=== PATIENT | female | born 1940 | race Caucasian/White ===

== ENCOUNTER 2019-03-05 19:18 | Inpatient (IN) | payer MEDICARE, BC ==
[~2019-03-05] VITALS: Ht 160 cm; Wt 73.9 kg
--- NOTE | 2019-03-05 21:41 | NUR ---
NEW ADMIT TO DOCTOR VASQUEZ FROM [facility] FOR ALTERED MENTAL STATUS AND AGGRESSION. RECIEVED VIA EMS. PATIENT VERY COMBATIVE UPON ADMIT. REFUSED ADMIT VITALS AND ADMIT ASSESSMENT AND HISTORY. ATTEMPTS TO HIT STAFF DURING ANY INTERVENTIONS. POESY ALARM IN PLACE. ATTEMPTED TO CONTACT SON 'MARICEL" FOR ADMIT CONSENT BUT DID NOT ANSWER. LEFT MESSAGE FOR HIM TO CONTACT CORRECTION.
[2019-03-05] MEDS ORDERED: TYLENOL650 MG RC (23:00)
[2019-03-05] MEDS ORDERED: HYDROCODON-ACE1 EAC7 PO (23:03)
[2019-03-05] MEDS ORDERED: CLEOCIN HCL300 MG PO (23:06)
[2019-03-05] MEDS ORDERED: FLORASTOR250 MG PO (23:07)
[2019-03-05] MEDS ORDERED: VITAMIN B-12500 MCG PO (23:09)
[2019-03-05] MEDS ORDERED: LOW DOSE ASPIRI81 M1 PO (23:09)
[2019-03-05] MEDS ORDERED: MAG-OXIDE400 MG PO (23:10)
[2019-03-05] MEDS ORDERED: LIPITOR80 MG PO (23:10)
[2019-03-05] MEDS ORDERED: FLUTICASONE PRO16 GM NASAL (23:11)
[2019-03-05] MEDS ORDERED: LANTUS SOL100 UNIT/1 SQ (23:12)
[2019-03-05] MEDS ORDERED: COREG25 MG PO (23:14)
[2019-03-05] MEDS ORDERED: PLAVIX75 MG PO (23:14)
[2019-03-05] MEDS ORDERED: LOPID600 MG PO (23:15)
[2019-03-05] MEDS ORDERED: LANOXIN125 MCG PO (23:15)
[2019-03-05] MEDS ORDERED: NOVOLOG100 UNIT/1 SC (23:16)
[2019-03-05] MEDS ORDERED: IMODIUM2 MG PO (23:17)
[2019-03-05] MEDS ORDERED: MYLANTA / MAALO30 ML PO (23:19)
[2019-03-05] MEDS ORDERED: MILK OF MAGNESI30 ML PO (23:20)
[2019-03-05] MEDS ORDERED: NITROSTAT0.3 MG SL (23:24)
[2019-03-05] MEDS ORDERED: SENNA S TABLET1 TAB PO (23:25)
[2019-03-06 07:19] LABS: BASOPHILS 0.1 % (0-2); EOSINOPHILS 0.6 % (0-7); HEMOGLOBIN 9.3 g/dL (12-16); IMMATURE GRANULOCYTES 0.3 % (0-5); LYMPHOCYTES 12.9 % (15-50); MCV 87.2 fL (80.0-100.0); MEAN PLATELET VOLUME 9.3 fL (7.4-10.4); NEUTROPHILS 79.1 % (40-80); PLATELET COUNT 445 10x3/uL (130-400); RBC 3.44 10x6/uL (4.00-5.40); RDW 15.9 % (11.5-14.5); WBC 11.9 10x3/uL (4.8-10.8)
[2019-03-06 07:54] LABS: ALKALINE PHOSPHATASE 97 U/L (46-116); ALT (SGPT) 7 U/L (10-68); BILIRUBIN - TOTAL 0.46 mg/dL (0.2-1.3); CALC OSMOLALITY 276 mosm/kg (275-300); CALCIUM 9.1 mg/dL (8.5-10.1); CARBON DIOXIDE 25.6 mmol/L (21.0-32.0); CHLORIDE - SERUM 101 mmol/L (98-107); CREATININE - SERUM 0.7 mg/dL (0.6-1.3); GLUCOSE 213 mg/dL (74-106); HDL CHOLESTEROL 30 mg/dL (32-96); PROTEIN - SERUM 8.2 g/dL (6.4-8.2); SODIUM 136 mmol/L (136-145); TRIGLYCERIDE 150 mg/dL (30-200); UREA NITROGEN 9 mg/dL (7-18); eGFR NON AFRICAN AMERICAN 86 mL/min (90-120)
[2019-03-06 08:11] LABS: LDL CHOLESTEROL 29 mg/dL (0-100)
[2019-03-06 08:28] LABS: ALBUMIN 2.6 g/dL (3.4-5.0); CHOLESTEROL, TOTAL 89 mg/dL (0-200)
[2019-03-06 08:50] VITALS: BP 103/38
[2019-03-06 10:04] VITALS: Ht 160 cm; Wt 73.9 kg
--- NOTE | 2019-03-06 12:38 | NUR ---
The patient c/o pain in her left foot. Provided [place] 5/325 PO.
--- NOTE | 2019-03-06 12:58 | NUR ---
B) The patient is awake and alert. She does have a wound consult ordered. She is pleasant. Spoke to her son this am and received her code word and that she is a DNR. Her code word is [place]. She has not been aggressive with staff today. I) Provide prescribed meds. R) The patient is compliant with meds and unit milieu. P) Continue POC.
--- NOTE | 2019-03-06 14:37 | NUR ---
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 THE INCISION IS INTACT WITH ABBI AND A DRAIN ON LATERAL ASPECT. SMALL AMOUNT OF BLOODY DRAINAGE NOTED. NO ODOR. NO REDNESS OR EDEMA NOTED. PT STATES IT IS TENDER TO THE TOUCH. WOUND WAS CLEANSED WITH SALINE AND PATTED DRY. IT WAS COVERED WITH DRY 4X4S AND WRAPPED WITH KERLIX. PT TOLERATED WELL. RECOMMEND DAILY DRESSING CHANGES ALONG WITH PRN IF SATURATED OR DISLODGED. WOUND CARE WILL CONTINUE MONITORING.
[2019-03-06 20:20] VITALS: BP 79/34
--- NOTE | 2019-03-06 21:47 | NUR ---
REC'D SITTING IN A WHEELCHAIR IN THE DAYROOM WITH EYES CLOSED. INITIALLY WAS TALKING TO NURSE WITH EYES CLOSED BUT FINALLY OPENED HER EYES. ORIENTED TO SELF ONLY. NO INSIGHT INTO REASON FOR ADMISSION. DRESSING CDI TO RIGHT FOOT. COOPERATIVE WITH STAFF INSTRUCTIONS. ADMINISTER MEDS AND MONITOR COMPLIANCE. REORIENT NEEDED. MED COMPLIANT. POOR REORIENTATION DUE TO IMPAIRED ABILITY TO RETAIN INFORMATION. CONTINUE POC AND PROVIDE SAFE ENVIRONMENT.
[2019-03-07 07:15] LABS: RAPID PLASMA REAGIN Non Reactive (Non Reactive)
--- NOTE | 2019-03-07 07:30 | NUR ---
B) The patient is calm this am she has not shown any aggression. She self propels in her w/c and she continues to have a dressing to the right foot regarding amputation of her five digits x 2 weeks ago. She has poor insight into her situation. I) Provide prescribed meds. R) The patient is compliant with meds. P) Continue POC.
[2019-03-07 09:39] VITALS: BP 104/35
--- NOTE | 2019-03-07 10:49 | NUR ---
Dressing changed. Sutures and drain intact, healing well. Clean dry dressing applied.
--- NOTE | 2019-03-07 14:51 | PSY ---
PATIENT NAME:CATHIE YOUNG MEDICAL RECORD: [id number] : 40 LOCATION:DEEPALI Lopez ADMISSION DATE: 03/05/19 ACCOUNT: [id number] PSYCHIATRIC EVALUATION DATE OF EVALUATION: 03/06/19 IDENTIFYING DATA: The patient is 78 years old and she is admitted to the hospital secondary to aggressive behavior. HISTORY OF PRESENT ILLNESS: The patient has a history of multiple medical problems. She was admitted to the hospital for an amputation of her right foot. Apparently, it was ischemic. She was confused and combative with the nursing staff and she was subsequently transferred to the behavioral unit. She apparently has been living in a fci with her , but she is an extremely poor historian and provides virtually no useful information to me. She is talkative, but when answering questions, it is completely unrelated to what I have asked her. It is clear she is very disorganized. PAST MEDICAL HISTORY: Significant for stroke, diabetes, hypertension, recent amputation. PAST PSYCHIATRIC HISTORY: Significant for dementia with an associated behavior problem. ALLERGIES: SULFA. CURRENT MEDICATIONS: Hydrocodone, aspirin, vitamin B12, Lipitor, Coreg, Plavix, Lanoxin, Lopid, NovoLog, Mylanta, Nitrostat, and docusate sodium. SOCIAL HISTORY: The patient is . Her has Alzheimer's as well. She has 2 children and she is currently a resident of a local fci. MENTAL STATUS EXAMINATION: The patient is awake, alert and oriented to person and place, but not to time or situation. Her mood is flat. Her affect is constricted. Thought processes are circumstantial. Memory, concentration, and abstraction abilities are severely impaired and she denies that she would seek to harm herself or others as well as psychotic symptoms. ASSETS: Supportive family members. LIABILITIES: Limited insight. DIAGNOSTIC IMPRESSION: AXIS I: Vascular dementia. AXIS II: None. AXIS III: Diabetes, hypertension, and hyperlipidemia. PLAN: At this time, the patient is admitted to the hospital for a comprehensive, medical, psychological, and social evaluation. She will be treated with both mood stabilizing and memory enhancing medications. Her long-term prognosis is guarded. TRANSINT:[id number] Voice Confirmation ID: [id number] DOCUMENT ID: [id number] ROMANA VASQUEZ MD at 0184 CC: [id number] DICTATION DATE: 03/06/19 1536 PIPING MANAGER: 03/06/19 1549 ADM IN [facility] [address] [id number]
[2019-03-07 20:00] VITALS: BP 125/43
--- NOTE | 2019-03-07 22:19 | NUR ---
B.) PT IS ALERT AND ORIENTED TO SELF, PLACE AND SITUATION. SHE IS PLEASANT WITH STAFF. SHE USES A WHEELCHAIR TO ASSIST WITH AMBULATION. I.) PROVIDED PM MEDICATIONS. R.) COMPLIANT WITH ALL MEDICATIONS. P.) CONTINUE PLAN OF CARE
--- NOTE | 2019-03-08 08:02 | PN ---
PATIENT:CATHIE YOUNG MEDICAL RECORD: [id number] LOCATION:[facility]EPALI Crump ADMISSION DATE: 03/05/19 PROGRESS NOTE DATE OF SERVICE: 03/07/2019 SUBJECTIVE: The patient's case was discussed with staff. She has no new complaint. OBJECTIVE: The patient is in good behavioral control. She has limited insight about her condition. She is easily agitated and clearly is severely impaired cognitively. ASSESSMENT: Vascular dementia. PLAN: The patient will be maintained on current medications. I am, however, going to start her on Aricept for its memory enhancing properties. TRANSINT:[id number] Voice Confirmation ID: [id number] DOCUMENT ID: [id number] ROMANA VASQUEZ MD at 0802 CC: [id number] DICTATION DATE: 03/07/19 1510 DIGITAL SERVICE ENGINEER: 03/07/19 2101 ADM IN [facility] [address] [id number]
[2019-03-08 09:16] VITALS: BP 125/59
--- NOTE | 2019-03-08 12:03 | NUR ---
B) The patient is awake. She is pleasant and she is cooperative. She is interacting with staff and peers. She is assisting with transfers. She has not shown any aggression today. I) Provide prescribed meds. R) The patient is compliant with meds. P) Continue POC.
--- NOTE | 2019-03-08 16:37 | NUR ---
New dressing applied to her right foot, sutures inatact with a small drain.
--- NOTE | 2019-03-08 19:47 | NUR ---
RECEIVED IN DAYROOM. SITTING QUIETLY IN RECLINER WITH PEERS BY HER SIDE. CALM AND COOPERATIVE WITH CARE AND ASSESSMENT. NO AGGRESSIVE BEHAVIORS. REDIRECT AND REORIENT NEEDED. CONTINUES TO SIT WITH PEERS WHILE WAITING ON PM MEDICATIONS. CONTINUE PLAN OF CARE.
[2019-03-08 20:00] VITALS: BP 131/42
[2019-03-09 08:00] VITALS: BP 108/49
--- NOTE | 2019-03-09 16:47 | NUR ---
PATIENT HAS HAD AN UNEVENTFUL DAY, NO AGGRESSION NOTED. MEDS ADMIN PER ORDERS WITH COMPLETE MED COMPLIANCE NOTED. COOPERATIVE WITH PLAN OF CARE. CONT POC DIRECTED. DSSG TO RIGHT FOOT CHANGED PER MED NURSE.
[2019-03-09 20:10] VITALS: BP 115/32
--- NOTE | 2019-03-09 22:22 | NUR ---
RECEIVED IN DAYROOM. SITTING IN A RECLINING CHAIR AT THE TABLE. CALM AND COOPERATIVE WITH CARE AND ASSESSMENT. NO SIGNS OF AGGRESSION. REDIRECT AND REORIENT NEEDED. RESTING IN BED EYES CLOSED AT THIS TIME. CONTINUE PLAN OF CARE
[2019-03-10 08:28] VITALS: BP 127/64
[2019-03-10 12:00] LABS: BASOPHILS 0.3 % (0-2); HEMATOCRIT 28.4 % (36.0-48.0); HEMOGLOBIN 8.6 g/dL (12-16); IMMATURE GRANULOCYTES 0.3 % (0-5); LYMPHOCYTES 12.3 % (15-50); MCH 26.3 pg (26.0-34.0); MCHC 30.3 g/dL (31.0-37.0); MCV 86.9 fL (80.0-100.0); MEAN PLATELET VOLUME 9.4 fL (7.4-10.4); MONOCYTES 8.8 % (2-11); NEUTROPHILS 76.3 % (40-80); PLATELET COUNT 431 10x3/uL (130-400); RBC 3.27 10x6/uL (4.00-5.40); RDW 16.1 % (11.5-14.5); WBC 11.6 10x3/uL (4.8-10.8)
--- NOTE | 2019-03-10 14:28 | NUR ---
Nutrition Follow-up: Chart reviewed. Noted that she does not have an appetite. Diet: Diabetic + Ensure BID PO intake: ~51% average x last 9 meals Last BM: 03/07/19. Wt: 170# (03/09/19); Admit wt: 170# (03/06/19). Significant meds: linzess, lantus, florastor, senna, clindamycin, SSI. Labs noted: Glu 224. Continue Diabetic diet. Will change oral nutrition supplements to Glucerna. Continue bowel regimen to promote BM regularity. Encourage PO intake. Consider appetite stimulant if PO intake continues poor. RD Following.
--- NOTE | 2019-03-10 15:38 | NUR ---
RECEIVED PT THIS MORNING AT B'FAST TIME. ALERT, CALM, COOPERATIVE, NO BEHAVIORAL ISSUES NOTED. MEDS ADMIN PER ORDERS WITH COMPLETE MED COMPLIANCE NOTED. COOPERATIVE WITH PLAN OF CARE. CONT POC DIRECTED.
--- NOTE | 2019-03-10 15:49 | PN ---
PATIENT:CATHIE YOUNG MEDICAL RECORD: [id number] LOCATION:DEEPALI Crump ADMISSION DATE: 03/05/19 PROGRESS NOTE DATE OF SERVICE: 03/08/2019 SUBJECTIVE: The patient's case was discussed with staff. She has no new complaint. OBJECTIVE: The patient is in good behavioral control with poor insight about her condition. She tolerates her medicines well. ASSESSMENT: Vascular dementia. PLAN: Supportive and educational interventions were made. Long-term prognosis is guarded. TRANSINT:[id number] Voice Confirmation ID: [id number] DOCUMENT ID: [id number] ROMANA VASQUEZ MD at 1549 CC: [id number] DICTATION DATE: 03/08/19830 HADOOP ARCHITECT: 03/08/19 08 ADM IN [id number] [place] [address]
--- NOTE | 2019-03-10 15:49 | PN ---
PATIENT:CATHIE YOUNG MEDICAL RECORD: [id number] LOCATION:DEEPALI Crump ADMISSION DATE: 03/05/19 PROGRESS NOTE DATE OF SERVICE: 03/09/2019 SUBJECTIVE: The patient's case was discussed with staff. She has no new complaint. OBJECTIVE: The patient has not been aggressive today. She is only partially oriented. She is eating and sleeping adequately. ASSESSMENT: No change in diagnoses. PLAN: Brief supportive and educational interventions were made. The patient will be maintained on current medications. I am unsure about her placement when she leaves here, but will discuss it with the treatment team tomorrow. TRANSINT:[id number] Voice Confirmation ID: [id number] DOCUMENT ID: [id number] ROMANA VASQUEZ MD at 1549 CC: [id number] DICTATION DATE: 03/09/19 1157 PLASTICS PROCESS HAND: 03/09/19 1205 ADM IN [id number] [place] [address]
--- NOTE | 2019-03-10 18:30 | NUR ---
PT C/O ABDOMINAL AND FOOT PAIN [place] 5/325 ADMIN PO.
[2019-03-10 20:05] VITALS: BP 122/58
--- NOTE | 2019-03-10 20:40 | NUR ---
RECEIVED IN DAYROOM. SITTING IN A RECLINING CHAIR WITH PEERS AT HER SIDE. CALM AND COOPERATIVE WITH CARE AND ASSESSMENT. NO SIGNS OF AGGRESSION. REDIRECT AND REORIENT NEEDED. CONTINUES TO SIT CALMLY. CONTINUE PLAN OF CARE
[2019-03-11 08:18] VITALS: BP 128/33
--- NOTE | 2019-03-11 15:28 | PN ---
PATIENT:CATHIE YOUNG MEDICAL RECORD: [id number] LOCATION:DEEPALI Crump ADMISSION DATE: 03/05/19 PROGRESS NOTE DATE OF SERVICE: 03/10/2019 SUBJECTIVE: The patient's case was discussed with staff. She has no new complaint. OBJECTIVE: The patient is in good behavioral control with very limited insight about her condition. She has not been aggressive. ASSESSMENT: Vascular dementia. PLAN: The patient will be maintained on current medications . I am going to start her on Namenda for its memory-enhancing properties. She will be monitored for clinical changes associated with its use. TRANSINT:[id number] Voice Confirmation ID: [id number] DOCUMENT ID: [id number] ROMANA VASQUEZ MD at 1528 CC: [id number] DICTATION DATE: 03/10/19 1627 DATA ADMINISTRATOR: 03/10/19 2147 ADM IN [id number] [id number]
--- NOTE | 2019-03-11 20:49 | NUR ---
RECEIVED IN DAYROOM. SITTING IN A RECLINER KEEPING TO HERSELF. IN GOOD SPIRITS. HELD THIS NURSES HAND AND TALKED FOR A WHILE. CALM AND COOPERATIVE WITH CARE AND ASSESSMENT. ENCOURAGE TO EXPRESS NEEDS. CONTINUES TO SIT QUIETLY. CONTINUE PLAN OF CARE
[2019-03-11 21:05] VITALS: BP 112/32
[2019-03-12 08:00] VITALS: BP 111/57
--- NOTE | 2019-03-12 09:00 | NUR ---
AWAKE AND ALERT. WITH CONFUSION NOTED. CALM AND COOPERATIVE WITH CARE AND ASSESSMENT. ADMINISTERED PRESCRIBED MEDS. ORDERED. COMPLIANT WITH TAKING MEDICATIONS. NO BEHAVIORS NOTED. WILLM CONTINUE PLAN OF CARE.
--- NOTE | 2019-03-12 14:20 | PN ---
PATIENT:CATHIE YOUNG MEDICAL RECORD: [id number] LOCATION:DEEPALI Crump ADMISSION DATE: 03/05/19 PROGRESS NOTE DATE OF SERVICE: 03/11/2019 SUBJECTIVE: The patient's case was discussed with staff. She has no new complaint. OBJECTIVE: The patient is in good behavioral control with poor insight about her condition. She tolerates her medicines well. ASSESSMENT: Vascular dementia. PLAN: Brief supportive and educational interventions were made. The patient will be maintained on current medicines, which I have reviewed. TRANSINT:[id number] Voice Confirmation ID: [id number] DOCUMENT ID: [id number] ROMANA VASQUEZ MD at 1420 CC: [id number] DICTATION DATE: 03/11/19 1549 TIRE REPAIRER: 03/11/19 2208 ADM IN [id number] [place] [address]
[2019-03-12 20:00] VITALS: BP 118/42
--- NOTE | 2019-03-12 22:12 | NUR ---
B.) PT IS ALERT AND ORIENTED TO SELF AND SITUATION. SHE USES A WHEELCHAIR TO AMBULATE. SHE HAS A RIGHT TRANSMETATARSAL AMPUTATION. SHE IS QUIET TODAY WITH STAFF AND PEERS. SHE C/O OF PAIN IN HER AMPUTATION. I.) PROVIDED PM MEDICATIONS. R.) COMPLIANT WITH ALL MEDICATIONS. P.) CONTINUE PLAN OF CARE
[2019-03-13 08:36] VITALS: BP 107/44
--- NOTE | 2019-03-13 10:35 | NUR ---
PATIENT IS ALERT AND ORIENTED TO SELF WITH LIMITED INSIGHT. PT IS VERY PLESANT WITH STAFF AND PEERS. PT USES A WHEELCHAIR TO AMBULATE DUE TO TRANSMETATARSAL AMPUTATION. PT IS COMPLIANT WITH MEDS, VITALS AND ASSESSMENTS. DENIES ANY PAIN. WILL CONT PLAN OF CARE.
--- NOTE | 2019-03-13 11:06 | NUR ---
NUTRITION F/U PT TOLERATING DIABETIC DIET. ~45% AVERAGE INTAKE RECENT MEALS. ALSO RECEIVING GLUCERNA SHAKE WITH MEALS. WT REMAINS STABLE. +BM RECORDED 03/12/19. WILL CONTINUE TO MONITOR PT PO INTAKE AND WT. RD FOLLOWING
--- NOTE | 2019-03-13 15:25 | PN ---
PATIENT:CATHIE YOUNG MEDICAL RECORD: [id number] LOCATION:DEEPALI Crump ADMISSION DATE: 03/05/19 PROGRESS NOTE DATE OF SERVICE: 03/12/2019 SUBJECTIVE: The patient's case was discussed with staff. She has no new complaint. OBJECTIVE: The patient is in good behavioral control with limited insight about her condition. She is tolerating her medications well. ASSESSMENT: Vascular dementia. PLAN: Current medicines have been reviewed and will be maintained. Long-term prognosis is guarded. TRANSINT:[id number] Voice Confirmation ID: [id number] DOCUMENT ID: [id number] ROMANA VASQUEZ MD at 1525 CC: [id number] DICTATION DATE: 03/12/19 1529 E COMMERCE MERCHANT: 03/12/19 2340 ADM IN [id number] [place] [address]
[2019-03-13 20:00] VITALS: BP 128/51
--- NOTE | 2019-03-13 22:36 | NUR ---
REC'D SITTING IN THE DAYROOM. ISOLATIVE AND SITS TO SELF. PLEASANT WHEN APPROACHED BY STAFF. RELATES IS IN THE FAMILY ROOM. DISORIENTED TO TIME AND SITUATION. RELATES "SHE MAKES ME SO NERVOUS" AND POINTS TO A PEER. RELATES SHE IS AFRAID THE PEER WILL HIT HER FOOT WITH THE WHEELCHAIR. DRESSING CDI TO RIGHT FOOT. ADMINISTER MEDS AND MONITOR COMPLIANCE. OBSERVE FOR COMBATIVE BEHAVIOR AND REDIRECT NEEDED. MED COMPLIANT. NO COMBATIVE BEHAVIOR OBSERVED. REMAINS ISOLATIVE AND WITHDRAWN FROM OTHERS. CONTINUE POC AND PROVIDE SAFE ENVIRONMENT.
[2019-03-14 08:05] VITALS: BP 134/52
--- NOTE | 2019-03-14 09:46 | NUR ---
PATIENT SITTING IN CHAIR WITH EYES CLOSED. RESP EVEN AND NONLABORED. NO ACUTE DISTRESS NOTED. PT IS ALERT AND ORIENTED TO SELF WITH CONFUSION NOTED. PT ISOLATES SELF FROM OTHERS. PT DRESSING INTACT AND DRY TO RIGHT FOOT DUE TO AMPUTATION OF METATARSALS. PT DENIES ANY PAIN. CHAIR ALARM IN PLACE AND ACTIVE. NO BEHAVIORS NOTED FROM PREVIOUS SHIFT. WILL CONT PLAN OF CARE.
--- NOTE | 2019-03-14 14:32 | PN ---
PATIENT:CATHIE YOUNG MEDICAL RECORD: [id number] LOCATION:DEEPALI Crump ADMISSION DATE: 03/05/19 PROGRESS NOTE DATE OF SERVICE: 03/13/2019 SUBJECTIVE: The patient's case was discussed with staff. She has no new complaint. OBJECTIVE: The patient denies intent to harm herself or others. She is tolerating her medicines well. ASSESSMENT: Dementia. PLAN: The patient is probably going to be transferred to [facility] for rehabilitative services. Based on her current level of improvement, I would anticipate that could happen in as little as 3 days. TRANSINT:[id number] Voice Confirmation ID: [id number] DOCUMENT ID: [id number] ROMANA VASQUEZ MD at 1432 CC: [id number] DICTATION DATE: 03/13/19 1544 SUPERVISORY TRAINING SPECIALIST: 03/13/19 2200 ADM IN [id number] [id number]
--- NOTE | 2019-03-14 15:51 | NUR ---
[facility] CALLED TO CHECK ON PT AND ASK FOR DISCHARGE DATE. ALEXISE HER A REPORT AND SHE TOOK MY NAME,
[2019-03-14 21:35] VITALS: BP 98/50
--- NOTE | 2019-03-14 22:36 | NUR ---
REC'D SITTING IN CHAIR. ISOLATIVE AND WITHDRAWN AROUND PEERS. APPROPRIATE WHEN APPROACHED BY STAFF. DISORIENTED AND CONFUSED. DRESSING CDI TO RIGHT FOOT. ADMINISTER MEDS AND MONITOR COMPLIANCE. REORIENT NEEDED. MED COMPLIANT. POOR REORIENTATION DUE TO IMPAIRED ABILITY TO RETAIN INFORMATION. CONTINUE POC AND PROVIDE SAFE ENVIRONMENT.
--- NOTE | 2019-03-15 08:10 | NUR ---
REC'D PT SITTING IN CHAIR IN DINING ROOM. PT C/O OF NOT FEELING WELL AT THIS TIME. VITALS SIGNS WNL. PT IS ALERT AND ORIENTED TO SELF. PT IS COMPLIANT WITH MEDS, VITALS AND ASSESSMENTS. NO BEHAVIOR NOTED THIS SHIFT OR PREVIOUS SHIFT. 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 DRESSING INTACT AND DRY TO RIGHT FOOT. WILL CHANGE DRESSING LATER THIS SHIFT. CHAIR ALARM IN PLACE AND ACTIVE. WILL CONT PLAN OF CARE.
[2019-03-15 10:02] VITALS: BP 133/52
--- NOTE | 2019-03-15 12:27 | PN ---
PATIENT:CATHIE YOUNG MEDICAL RECORD: [id number] LOCATION:DEEPALI Crump ADMISSION DATE: 03/05/19 PROGRESS NOTE DATE OF SERVICE: 03/14/2019 SUBJECTIVE: The patient's case was discussed with staff. She has no new complaint. OBJECTIVE: The patient slept well last night, but did not eat at all yesterday. When asked about this, she claims she did eat yesterday. She also says she will try to do better with regards to her eating. ASSESSMENT: Dementia. PLAN: I am not entirely clear as to why the patient is not adequately eating. I am going to guess it is likely related to her underlying dementia and just part of the disease process. I am going to order Megace to assist with appetite stimulation. She will be monitored for clinical changes associated with its use. TRANSINT:[id number] Voice Confirmation ID: [id number] DOCUMENT ID: [id number] ROMANA VASQUEZ MD at 1227 CC: [id number] DICTATION DATE: 03/14/19 1434 LAWN AND GARDEN TECHNICIAN: 03/14/19 1534 ADM IN [id number] [place] [id number]
--- NOTE | 2019-03-15 13:39 | NUR ---
PATIENT FELT WARM TO TOUCH TEMP 99.8F ORAL. PT C/O OF GENERAL NOT FEELING WELL AND PAIN. PT HAD A LARGE LOOSE BM. PT C/O OF BEING COLD. BLANKET PUT ON PT. PT GOT A SHOWER AND REWRAPPED DRESSING TO RIGHT FOOT AMPUTEE. NOTIFIED Jay CISNEROS APN. NEW ORDERS IN COMPUTER. WILL CONT TO MONITOR PT PAIN, TEMP AND BOWEL MOVEMENTS.
--- NOTE | 2019-03-15 14:22 | NUR ---
The patient is having loose bowel movements and she says her stomach is cramping. Spoke to Lori Mathews APN and she ordered Flagyl. Provided the patient Imodium and a lemon tuscarora soft drink. Will monitor.
--- NOTE | 2019-03-15 15:20 | NUR ---
The patient is resting easier now, no c/o pain at this time and no more loose stools at this time.
[2019-03-15 16:05] VITALS: BP 123/58
--- NOTE | 2019-03-15 16:06 | NUR ---
REPEAT VITALS SIGNS: B/P: 123/66, P:65. TEMP IS DOWN FROM EARLIER.
--- NOTE | 2019-03-15 17:35 | NUR ---
NURSE ASSISTED PT TO RESTROOM. PT NOTED TO RIGHT BUTTOCK DIME SIZE AREA NOTED. OPEN NO BLEEDING. AREA TO COCCYX NOTED WITH BLOOD. CREAM APPLIED TO AREA. NURSE ENCOURAGED TO DRINK TERESA TO DRINK. WILL CONT TO MONITOR AREA.
[2019-03-15 19:13] LABS: APPEARANCE CLOUDY (CLEAR); BILIRUBIN NEGATIVE (NEGATIVE); COLOR YELLOW (YELLOW); GLUCOSE 100 mg/dL (NEGATIVE); KETONE NEGATIVE (NEGATIVE); NITRITE NEGATIVE (NEGATIVE); PROTEIN NEGATIVE (NEGATIVE); SPECIFIC GRAVITY 1.015 (1.005-1.020); UROBILINOGEN NORMAL (NORMAL)
[2019-03-15 19:17] LABS: WHITE CELLS - URINE 25-50 /hpf (NEGATIVE)
[2019-03-15 19:18] LABS: BACTERIA MODERATE /hpf (NEGATIVE); EPITHELIAL CELLS 0-5 /hpf (0-5); RED CELLS - URINE 0-5 /hpf (0-5)
[2019-03-15 20:04] VITALS: BP 138/42
--- NOTE | 2019-03-15 23:56 | NUR ---
REC'D PATIENT LAYING IN THE BED. RELATES SHE IS DOING PRETTY GOOD. DISORIENTED AND CONFUSED. APPROPRIATE WITH STAFF WHEN APPROACHED. ADMINISTER MEDS AND MONITOR COMPLIANCE. REORIENT NEEDED. MED COMPLIANT. POOR REORIENTATION DUE TO IMPAIRED ABILITY TO RETAIN INFORMATION. CONTINUE POC AND PROVIDE SAFE ENVIRONMENT.
--- NOTE | 2019-03-16 08:00 | NUR ---
PATIENT SITTING IN CHAIR IN DINGING AREA. RESP EVEN AND NONLABORED. PT DID EAT BETTER AT BREAKFAST STATING SHE DID FEEL BETTER. PT HAS A RIGHT METATARSAL AMPUTATION. DRESSING CHANGED 03/15/19 SITE LOOKS GOOD, DRESSING INTACT. WILL CHANGE THIS SHIFT. PT HAS RED AREA TO COCCYX AREA WITH DIME SIZE AREA NOTED TO RIGHT SIDE OF BUTTOCKS. PT IS VERY FRIENDLY WITH STAFF AND PEERS. PT COMPLIANT WITH MEDS, VITALS AND ASSESSMENT. CHAIR ALARM IN PLACE AND ACTIVE. WILL CONT PLAN OF CARE.
[2019-03-16 08:12] LABS: BASOPHILS 0.4 % (0-2); EOSINOPHILS 1.8 % (0-7); HEMATOCRIT 28.6 % (36.0-48.0); HEMOGLOBIN 8.8 g/dL (12-16); IMMATURE GRANULOCYTES 0.3 % (0-5); LYMPHOCYTES 12.5 % (15-50); MCH 26.7 pg (26.0-34.0); MCHC 30.8 g/dL (31.0-37.0); MCV 86.9 fL (80.0-100.0); MONOCYTES 7.2 % (2-11); NEUTROPHILS 77.8 % (40-80); RBC 3.29 10x6/uL (4.00-5.40); RDW 16.9 % (11.5-14.5); WBC 14.1 10x3/uL (4.8-10.8)
[2019-03-16 08:14] LABS: PLATELET COUNT 575 10x3/uL (130-400)
[2019-03-16 08:49] LABS: ALBUMIN 2.3 g/dL (3.4-5.0); ANION GAP 17.2 mmol/L (8-16); BILIRUBIN - TOTAL 0.34 mg/dL (0.2-1.3); CALCIUM 9.6 mg/dL (8.5-10.1); CARBON DIOXIDE 23.4 mmol/L (21.0-32.0); CREATININE - SERUM 1.2 mg/dL (0.6-1.3); POTASSIUM - SERUM 4.6 mmol/L (3.5-5.1); PROTEIN - SERUM 8.8 g/dL (6.4-8.2)
[2019-03-16 09:05] VITALS: BP 110/48
--- NOTE | 2019-03-16 10:50 | NUR ---
PT LABS BACK SPOKE WITH YVON PASCUAL. CHEST X-RAY, CBC,CMP AND ROCEPHIN INJ 1 GRAM Q DAY. FIRST DOSE TO BE GIVEN AT THIS TIME. PT WILL CONTINUE FLAGYL 500 MG TID. WILL ASSESS FOR S/SX FOR REACTIONS.
--- NOTE | 2019-03-16 11:08 | NUR ---
FIRST DOSE OF CEFTRIAXONE 1 GRAM GIVEN IN RIGHT DG. PT TOLERATED WELL.WILL ASSESS FOR S/SX OF REACTION.
--- NOTE | 2019-03-16 16:56 | NUR ---
NURSE ASKED PT IF SHE WAS HURTING. PT STATED YES IN MY LOWER BACK. HYDROCODONE 5 MG PO GIVEN PER DOCTOR ORDER. WILL REASSESS Q 1 HOUR FOR EFFECTIVENESS. THIS NURSE REPOSITION PT WELL. PT STATED THAT FELT BETTER.
--- NOTE | 2019-03-16 18:06 | NUR ---
PT DID NOT EAT MUCH OF DINNER. PT DID DRINK GLUCERNA. PT C/O OF GENERAL NOT FEELING WELL. WILL CONT TO MONITOR PT. PT DENIES ANY PAIN AT THIS TIME.
--- NOTE | 2019-03-16 18:17 | NUR ---
HELD COREG 12.5 MG BID DUE TO LOW BLOOD PRESSURE.
--- NOTE | 2019-03-16 21:28 | NUR ---
RECEIVED IN PATIENT ROOM. RESTING IN BED WITH EYES OPEN. CALM AND COOPERATIVE WITH CARE AND ASSESSMENT. NO AGGRESSIVE BEHAVIORS. REDIRECT AND REORIENT NEEDED. RESTING IN BED WITH EYES CLOSED AT THIS TIME. CONTINUE PLAN OF CARE.
[2019-03-17 07:14] LABS: BASOPHILS 0.3 % (0-2); EOSINOPHILS 2.6 % (0-7); HEMATOCRIT 27.9 % (36.0-48.0); HEMOGLOBIN 8.7 g/dL (12-16); IMMATURE GRANULOCYTES 0.3 % (0-5); LYMPHOCYTES 10.9 % (15-50); MCHC 31.2 g/dL (31.0-37.0); MONOCYTES 6.9 % (2-11); PLATELET COUNT 584 10x3/uL (130-400); RBC 3.35 10x6/uL (4.00-5.40); RDW 16.5 % (11.5-14.5); WBC 11.9 10x3/uL (4.8-10.8)
[2019-03-17 07:21] LABS: ALBUMIN 2.2 g/dL (3.4-5.0); ANION GAP 17.2 mmol/L (8-16); BILIRUBIN - TOTAL 0.27 mg/dL (0.2-1.3); CALCIUM 8.7 mg/dL (8.5-10.1); CARBON DIOXIDE 20.5 mmol/L (21.0-32.0); POTASSIUM - SERUM 4.7 mmol/L (3.5-5.1); PROTEIN - SERUM 7.4 g/dL (6.4-8.2)
[2019-03-17 07:31] LABS: MCV 83.3 fL (80.0-100.0)
[2019-03-17 10:44] VITALS: BP 125/47
--- NOTE | 2019-03-17 14:01 | PN ---
PATIENT:CATHIE YOUNG MEDICAL RECORD: [id number] LOCATION:DEEPALI Crump ADMISSION DATE: 03/05/19 PROGRESS NOTE DATE OF SERVICE: 03/15/2019 SUBJECTIVE: The patient's case was discussed with staff. She has no new complaint. OBJECTIVE: The patient is partially oriented. She slept 8-1/2 hours last night. She ate virtually nothing yesterday and that was with encouragement from staff who was attempting to feed her. When asked about this, she does not have an explanation, but says that she will try to eat better. ASSESSMENT: Vascular dementia. PLAN: The patient has no concerns about her foot amputation and has no discomfort. She is scheduled to go to the [facility] from here and that will probably happen early next week. I do have her on Megace for appetite stimulation and at this point it has had no effect. If she continues to have a reduction in her oral intake, I will check baseline labs in a day or two. TRANSINT:[id number] Voice Confirmation ID: [id number] DOCUMENT ID: [id number] ROMANA VASQUEZ MD at 1401 CC: [id number] DICTATION DATE: 03/15/19 1230 ABSTRACT CHECKER: 03/15/19 1239 ADM IN [id number] [place] [address]
--- NOTE | 2019-03-17 17:40 | NUR ---
PATIENT COOPERATIVE THIS SHIFT, NO BEHAVIORAL ISSUES NOTED, CONT CONFUSED, NO AGGRESSION NOTED, MEDS ADMIN PER ORDERS WITH COMPLETE MED COMPLIANCE NOTED. COOPERATIVE WITH POC. CONT POC DIRECTED.
[2019-03-17 21:37] VITALS: BP 97/42
--- NOTE | 2019-03-17 22:58 | NUR ---
RECEIVED IN HALLWAY. SITTING OUTSIDE OF NURSES STAION SOOCIALIZING WITH PEERS AT TIMES. CALM AND COOPERATIVE WITH CARE AND ASSESSMENT. NO SIGNS OF AGGRESSION. REDIRECT AND REORIENT NEEDED. RESTING IN BED WITH EYES CLOSED AT THIS TIME. CONTINUE PLAN OF CARE
--- NOTE | 2019-03-18 06:26 | NUR ---
DRESSING CHANGE COMPLETED. NO SIGNS OF INFECTION PRESENT. 4X4 WITH KURLEX. PT TOLERATED WELL.
[2019-03-18 08:00] VITALS: BP 135/53
--- NOTE | 2019-03-18 11:25 | NUR ---
Nutrition Follow-up: Diet: Diabetic + Glucerna TID PO intake: ~37% average x last 9 meals (50-70% x 3 meals yesterday- improved) Last BM: 03/17/19. Wt: 164# (03/16/19); admit wt: 177# (03/06/19). Noted wt loss. Recorded wts are "wheelchair" wts. Potentially different wheelchair? Noted PU to coccyx in nursing skin assessment. Meds: megace, flagy, florastor, SSI. Labs noted. Continue current nutrition regimen and megace as long as medically feasible. Encourage PO intake. Will continue to monitor weight trend. RD Following.
--- NOTE | 2019-03-18 12:52 | PN ---
PATIENT:CATHIE YOUNG MEDICAL RECORD: [id number] LOCATION:[facility] ADMISSION DATE: 03/05/19 PROGRESS NOTE DATE OF SERVICE: 03/17/2019 SUBJECTIVE: The patient's case was discussed with staff. She has no new complaint. OBJECTIVE: The patient denies intent to harm herself or others. She is taking 2 antibiotics for her infection and they seem to be helping. ASSESSMENT: No change in diagnoses. PLAN: The patient Aricept will be increased to 10 mg at bedtime. Aricept is being used to treat her cognitive impairment. She will be monitored for clinical changes associated with its use. TRANSINT:[id number] Voice Confirmation ID: [id number] DOCUMENT ID: [id number] ROMANA VASQUEZ MD at 1252 CC: [id number] DICTATION DATE: 03/17/19 1708 HEATER INSTALLER: 03/18/19 0144 ADM IN [place] [id number] [place] [address]
[2019-03-18 20:00] VITALS: BP 146/60
--- NOTE | 2019-03-18 21:54 | NUR ---
RECEIVED IN DAYROOM. WATCHING TV. CALM AND COOPERATIVE WITH CARE AND ASSESSEMENT. NO AGGRESSIVE BEHAVIORS. REDIRECT AND REORIENT NEEDED. RESTING IN BED WITH EYES OPEN AT THIS TIME. CONTINUE PLAN OF CARE.
[2019-03-19 08:42] VITALS: BP 128/48
--- NOTE | 2019-03-19 12:02 | PN ---
PATIENT:CATHIE YOUNG MEDICAL RECORD: [id number] LOCATION:[facility] ADMISSION DATE: 03/05/19 PROGRESS NOTE DATE OF SERVICE: 03/18/2019 SUBJECTIVE: The patient's case was discussed with staff. She has no new complaint. OBJECTIVE: The patient denies intent to harm herself or others and is tolerating her medicines well. ASSESSMENT: Vascular dementia. PLAN: Brief supportive and educational interventions were made. Long-term prognosis is guarded. TRANSINT:[id number] Voice Confirmation ID: [id number] DOCUMENT ID: [id number] ROMANA VASQUEZ MD at 1202 CC: [id number] DICTATION DATE: 03/18/19 1255 ELECTRIC MULE OPERATOR: 03/18/19 1318 ADM IN [place] [id number] [place] [address]
--- NOTE | 2019-03-19 21:18 | NUR ---
PATIENT RECEIVED IN DAYROOM, SHE HAS A PLEASANT AFFECT, INTERACTING WITH OTHERS AND STAFF, LITTLE CONFUSED AT TIMES, COMPLIANT WITH MEDS, NO ADVERSE REACTION NOTED. RIGHT FOOT IS WRAPPED A LITTLE LOOSELY, SHE IS PROTECTIVE OF HER FOOT. WILL FOLLOW POC
[2019-03-19 23:46] VITALS: BP 132/50
--- NOTE | 2019-03-20 01:02 | NUR ---
PT HAVING LOOSE STOOLS. IMMODIUM PO ADMINISTERED PER ORDERS.
--- NOTE | 2019-03-20 09:00 | NUR ---
The patient is feeling sad, she says "I just want to go home." She is tearful. Spoke with her and gave her a hug, she said "I miss my kids and my home." Reassured her that she will be leaving soon and that she has not been here long.
[2019-03-20 09:21] VITALS: BP 140/49
--- NOTE | 2019-03-20 09:50 | NUR ---
PATIENT C/O OF LOWER BACK PAIN. HYDROCODONE 5 MG PO PER PRN ORDER. WILL REASSESS Q 1 HOUR FOR EFFECTIVENESS.
--- NOTE | 2019-03-20 09:58 | NUR ---
Called Dr. Artis's office and got a post op appointment for suture removal. Spoke to Dr. Chandra Foley's nurse. The date is March 25, 2019 at 0945, will put this on the discharge papers.
--- NOTE | 2019-03-20 10:50 | NUR ---
PT STATED PAIN IS BETTER.
--- NOTE | 2019-03-20 10:55 | NUR ---
NUTRITION F/U SPOKE WITH STAFF RE:RECENT PT WT LOSS. PT ON ABX, POSSIBLY AFFECTING PO INTAKE. HOWEVER IT APPEARS PO INTAKE IS SLOWLY IMPROVING. PT CURRENTLY ON MEGACE AND RECEIVING GLUCERNA SHAKES. RD FOLLOWING
--- NOTE | 2019-03-20 11:39 | NUR ---
CALMOSEPTINE APPLIED PER PRN ORDER TO BUTTOCKS.
--- NOTE | 2019-03-20 11:58 | NUR ---
LOPERAMIDE 2 MG PO GIVEN PER PRN ORDER. MHT REPORTED 2X LOOSE WATERY STOOLS. WILL REASSESS FOR EFFECTIVENESS.
--- NOTE | 2019-03-20 13:51 | PN ---
PATIENT:CATHIE YOUNG MEDICAL RECORD: [id number] LOCATION:[facility] ADMISSION DATE: 03/05/19 PROGRESS NOTE DATE OF SERVICE: 03/19/2019 SUBJECTIVE: The patient's case was discussed with staff. She has no new complaint. OBJECTIVE: The patient is in good behavioral control and has shown significant improvement. She is not actively suicidal and is partially oriented. She is participating reasonably well in group and although she is still not eating completely adequately, it is more than 50% of what is presented to her. She also is sleeping well. ASSESSMENT: Vascular dementia. PLAN: Brief supportive and educational interventions were made. Long-term prognosis is guarded. TRANSINT:[id number] Voice Confirmation ID: [id number] DOCUMENT ID: [id number] ROMANA VASQUEZ MD at 1351 CC: [id number] DICTATION DATE: 03/19/19 1226 LANCE CREWMEMBER/MLRS SERGEANT: 03/19/19 1315 ADM IN [place] [address] [place] [address]
--- NOTE | 2019-03-20 14:03 | NUR ---
NO MORE C/OS OF LOOSE STOOLS REPORTED.
[2019-03-20] MEDS ORDERED: FLAGYL500 MG PO (15:50)
[2019-03-20] MEDS ORDERED: DONEPEZIL HCL10 MG PO (15:50)
[2019-03-20] MEDS ORDERED: NAMENDA5 MG PO (15:51)
[2019-03-20] MEDS ORDERED: COREG12.5 MG PO (15:51)
[2019-03-20] MEDS ORDERED: PROTONIX40 MG PO (15:52)
[2019-03-20] MEDS ORDERED: FLORAJEN3 CAPS460 MG PO (15:52)
[2019-03-20] MEDS ORDERED: CALMOSEPTINE OI71 GM TOPICAL (15:52)
[2019-03-20] MEDS ORDERED: MEGACE40 MG PO (15:52)
[2019-03-20] MEDS ORDERED: VITAMIN D5000 UNIT PO (15:53)
--- NOTE | 2019-03-20 19:12 | NUR ---
PATIENT RECEIVED IN DAYROOM SITTING IN WHEELCHAIR INTERACTING WITH OTHER RESIDENTS, SHE IS VERY LABILE, SHE SMILES AND THEN IMMEDIATLEY CRIES FOR NO APPARENT REASON AND ACTS FEARFUL. NO COMBATIVENESS AT THIS TIME. WILL FOLLOW POC
[2019-03-20 22:12] VITALS: BP 140/59
[2019-03-21 10:52] VITALS: BP 105/44
--- NOTE | 2019-03-21 12:10 | NUR ---
PATIENT SITTING AT TABLE EATING LUNCH. NO ACUTE DISTRESS NOTED. PT IS VERY FRIENDLY WITH STAFF AND PEERS. PT IS ALERT AND ORIENTED TO SELF AND PLACE. PT IS SET TO DISCHAGE TODAY TO [facility]. NO BEHAVIORS NOTED. PT IS COMPLIANT WITH STAFF, PEERS AND MEDICAITONS. PT HAS A RIGHT METATARSAL AMPUTATION. NO C/O OF PAIN. CHAIR ALARM IN PLACE AND ACTIVE.
--- NOTE | 2019-03-21 12:28 | NUR ---
PATIENT DISCHARGED TO [facility] THIS SHIFT. PT WAS STABLE AT TIME OF DISCHARGE. 12 P.M. MEDICATION GIVEN AND BLOOD SUGAR CHECKED AND INSULIN GIVEN. PAPERWORK FAXED, REPORT CALLED AT 0810, BELONGINGS PACKED UP AND SENT WITH [facility] STAFF. PT TRANSFER FROM CHAIR TO FACILITY WHEELCHAIR. PT DID GOOD WITH TRANSFER. WALKED PT OUT OF FACILITY.
--- NOTE | 2019-03-21 14:05 | PN ---
PATIENT:CATHIE YOUNG MEDICAL RECORD: [id number] LOCATION:[facility] ADMISSION DATE: 03/05/19 PROGRESS NOTE DATE OF SERVICE: 03/20/2019 SUBJECTIVE: The patient's case was discussed with staff. She has no new complaints. OBJECTIVE: The patient is in good behavioral control with limited insight about her condition. She is tolerating her medicines well. ASSESSMENT: Vascular dementia. PLAN: Current medicines have been reviewed and will be maintained. I am going to tentatively schedule her for discharge tomorrow. She will be going to the [facility] for rehabilitative services and hopefully she will improve enough such that she can be sent to a less restrictive environment. Her current medicines have been reviewed. TRANSINT:[id number] Voice Confirmation ID: [id number] DOCUMENT ID: [id number] ROMANA VASQUEZ MD at 1405 CC: [id number] DICTATION DATE: 03/20/19 1549 SKEIN WINDER: 03/21/19 0008 DIS IN 03/21/19 [place] [address] [place] [address]
--- NOTE | 2019-03-22 12:13 | PN ---
PATIENT:CATHIE YOUNG MEDICAL RECORD: [id number] LOCATION:[facility] ADMISSION DATE: 03/05/19 PROGRESS NOTE DATE OF SERVICE: 03/21/2019 SUBJECTIVE: The patient's case was discussed with staff. She has no new complaint. OBJECTIVE: The patient is impaired cognitively, but has not been disruptive in any significant way. In fact, she has been quite pleasant and interacting well. The interactions are limited because she has an advanced dementia, but nevertheless, she is very manageable from a behavioral standpoint and certainly is showing no evidence of serious mood disorder. She is eating acceptably well and she is sleeping well. ASSESSMENT: Vascular dementia. PLAN: The patient will be transitioned to the prison today. Followup will be with her primary care prison physician. TRANSINT:[id number] Voice Confirmation ID: [id number] DOCUMENT ID: [id number] ROMANA VASQUEZ MD at 1213 CC: [id number] DICTATION DATE: 03/21/19 1418 ELECTRICAL SOFTWARE ENGINEER: 03/21/19 1539 DIS IN 03/21/19 [facility] [address] [place] [address]
--- NOTE | 2019-03-25 11:54 | DS ---
PATIENT:CATHIE YOUNG :40 MEDICAL RECORD: [id number] DISCHARGE SUMMARY ADMISSION DATE: 03/05/19 DISCHARGE DATE: 03/21/19 IDENTIFYING DATA: The patient is 78 years old and she was admitted to the hospital on a voluntary basis because of aggression. The patient has a history of multiple medical problems and has recently had an amputation of her right foot. She has been confused and combative with the nursing staff and for this reason, she was transferred to the behavioral unit for management. She has been living in a detention with her and she is a poor historian. She is quite disorganized at the time of admission. HOSPITAL COURSE: The patient was admitted to the hospital and evaluated from both a medical, psychological, and social standpoint. She was treated with both mood stabilizing and memory enhancing medications and did show significant improvement through the course of the hospitalization. She subsequently had stabilized sufficiently such that she could be transferred back to the detention. DISCHARGE DIAGNOSES: AXIS I: Major vascular neurocognitive disorder. AXIS II: None. AXIS III: Hypertension, diabetes, hyperlipidemia, recent amputation of her right foot. AXIS IV: Moderate stressors. AXIS V: Global assessment of functioning is 35. PLAN: At the time of discharge, the patient was in good behavioral control and showed no evidence of acute or direct dangerousness to herself or others. She was tolerating her medicines well. Her long-term prognosis is guarded. TRANSINT:[id number] Voice Confirmation ID: [id number] DOCUMENT ID: [id number] ROMANA VASQUEZ MD at 1154 CC: [id number] DICTATION DATE: 03/24/19 161 SPECIALIST ICU: 03/25/19 0034 DIS IN 03/21/19 [facility] [address] [place] [address]
== END 2019-03-21 12:24 | DRG 884 ==
LOC: D.PSYCH 19:18
PROVIDERS: Family Medicine; ADMIT Psychiatry & Neurology Psychiatry; ATTEND Psychiatry & Neurology Psychiatry
DX: F01.51 Vascular dementia, unspecified severity, with behavioral disturbance (principal); I10 Essential (primary) hypertension; E78.5 Hyperlipidemia, unspecified; E53.8 Deficiency of other specified B group vitamins; J30.9 Allergic rhinitis, unspecified; K21.9 Gastro-esophageal reflux disease without esophagitis; D72.829 Elevated white blood cell count, unspecified; R30.0 Dysuria; R63.0 Anorexia; E55.9 Vitamin D deficiency, unspecified; D50.8 Other iron deficiency anemias

== ENCOUNTER 2019-11-27 11:00 | Inpatient (IN) | payer MEDICARE, BC ==
[~2019-11-27] VITALS: Ht 160 cm; Wt 88.5 kg
[~2019-11-27 11:00] MED LIST: CALMOSEPTINE OI71 GM TOPICAL; CLEOCIN HCL300 MG PO; COREG12.5 MG PO; COREG25 MG PO; DONEPEZIL HCL10 MG PO; FLAGYL500 MG PO; FLORAJEN3 CAPS460 MG PO; FLORASTOR250 MG PO; FLUTICASONE PRO16 GM NASAL; HYDROCODON-ACE1 EAC7 PO; IMODIUM2 MG PO; LANOXIN125 MCG PO; LANTUS SOL100 UNIT/1 SQ; LIPITOR80 MG PO; LOPID600 MG PO; LOW DOSE ASPIRI81 M1 PO; MAG-OXIDE400 MG PO; MEGACE40 MG PO; MILK OF MAGNESI30 ML PO; MYLANTA / MAALO30 ML PO; NAMENDA5 MG PO; NITROSTAT0.3 MG SL; NOVOLOG100 UNIT/1 SC; PLAVIX75 MG PO; PROTONIX40 MG PO; SENNA S TABLET1 TAB PO; TYLENOL650 MG RC; VITAMIN B-12500 MCG PO; VITAMIN D5000 UNIT PO
[2019-11-27 11:54] LABS: APTT 37.8 SECONDS (22.8-39.4); INR 1.21 (0.85-1.17); PROTIME 15.2 SECONDS (11.6-15.0)
[2019-11-27 12:02] LABS: CALC OSMOLALITY 285 mosm/kg (275-300); CALCIUM 8.1 mg/dL (8.5-10.1); CARBON DIOXIDE 22.6 mmol/L (21.0-32.0); CHLORIDE - SERUM 98 mmol/L (98-107); CREATININE - SERUM 3.8 mg/dL (0.6-1.3); GLUCOSE 197 mg/dL (74-106); POTASSIUM - SERUM 5.7 mmol/L (3.5-5.1); SODIUM 133 mmol/L (136-145); UREA NITROGEN 55 mg/dL (7-18); eGFR NON AFRICAN AMERICAN 12 mL/min (90-120)
[2019-11-27 12:07] LABS: HEMATOCRIT 30.2 % (36.0-48.0); HEMOGLOBIN 9.5 g/dL (12-16); LYMPHOCYTES 9.2 % (15-50); MCH 27.5 pg (26.0-34.0); MCHC 31.5 g/dL (31.0-37.0); MCV 87.5 fL (80.0-100.0); MEAN PLATELET VOLUME 10.1 fL (7.4-10.4); NEUTROPHILS 79.7 % (40-80); PLATELET COUNT 247 10x3/uL (130-400); RBC 3.45 10x6/uL (4.00-5.40); RDW 15.2 % (11.5-14.5); WBC 12.2 10x3/uL (4.8-10.8)
[2019-11-27] MEDS ORDERED: CELEXA20 MG PO (12:20)
[2019-11-27] MEDS ORDERED: MOBIC7.5 MG PO (12:21)
[2019-11-27] MEDS ORDERED: GLUCOPHAGE500 MG PO (12:21)
[2019-11-27 12:23] LABS: ALBUMIN 2.7 g/dL (3.4-5.0); ALKALINE PHOSPHATASE 82 U/L (30-120); ALT (SGPT) 15 U/L (10-68); BILIRUBIN - TOTAL 0.37 mg/dL (0.2-1.3); CKMB 4.7 U/L (0.0-3.6); CREATINE KINASE 1754 UL (21-215); PROTEIN - SERUM 6.9 g/dL (6.4-8.2)
[2019-11-27] MEDS ORDERED: ROCEPHIN 1 GM/D51 G1 IM (12:23)
[2019-11-27 12:24] LABS: TROPONIN-I 0.745 ng/mL (0.000-0.060)
[2019-11-27 12:59] VITALS: BP 115/48
[2019-11-27 13:06] LABS: BACTERIA FEW /hpf (NEGATIVE); BILIRUBIN NEGATIVE (NEGATIVE); EPITHELIAL CELLS 0-5 /hpf (0-5); GLUCOSE 250 mg/dL (NEGATIVE); KETONE NEGATIVE (NEGATIVE); NITRITE NEGATIVE (NEGATIVE); SPECIFIC GRAVITY 1.015 (1.005-1.020); UROBILINOGEN NORMAL (NORMAL); WHITE CELLS - URINE >50 /hpf (NEGATIVE)
[2019-11-27 13:36] VITALS: BP 111/51
[2019-11-27 14:09] LABS: DIGOXIN 1.7 ng/mL (0.90-2.00); MAGNESIUM - SERUM 1.6 mg/dL (1.8-2.4); PHOSPHOROUS 4.7 mg/dL (2.5-4.9); THYROID STIMULATING HORMONE 1.28 uIU/mL (0.36-3.74)
[2019-11-27 15:01] VITALS: BP 130/64
--- NOTE | 2019-11-27 15:55 | NUR ---
PT AWAKE AND CONFUSED. ALERT TO PERSON AND PLACE. NO COMPLAINTS OR CONCERNS, BED ALARM ON AND ACTIVE. CL IN REACH, SRX2.
[2019-11-27 16:37] LABS: CREATINE KINASE 1909 UL (21-215); TROPONIN-I 2.325 ng/mL (0.000-0.060)
[2019-11-27 18:15] VITALS: BMI 34.6
--- NOTE | 2019-11-27 22:03 | NUR ---
TOOK OVER PT CARE AND MOVED PT TO 2138 DID 2129 EKG AT THIS TIME
[2019-11-27 22:16] LABS: CKMB 13.3 U/L (0.0-3.6); CREATINE KINASE 2167 UL (21-215); TROPONIN-I 5.494 ng/mL (0.000-0.060)
--- NOTE | 2019-11-27 22:53 | NUR ---
TYLENOL FOR FEVER GIVEN
[2019-11-28] VITALS: BP 121/44
--- NOTE | 2019-11-28 03:14 | NUR ---
I have reviewed this patient and I concur with the Shift Assessment completed by the Licensed Practical Nurse today this shift.
[2019-11-28 04:00] VITALS: BP 110/42
[2019-11-28 06:11] LABS: HEMOGLOBIN 8.1 g/dL (12-16); LYMPHOCYTES 10.9 % (15-50); MCH 27.3 pg (26.0-34.0); MCHC 31.2 g/dL (31.0-37.0); MCV 87.5 fL (80.0-100.0); MEAN PLATELET VOLUME 10.1 fL (7.4-10.4); NEUTROPHILS 80.3 % (40-80); PLATELET COUNT 201 10x3/uL (130-400); RBC 2.97 10x6/uL (4.00-5.40); RDW 15.6 % (11.5-14.5)
[2019-11-28 06:33] LABS: WBC 9.1 10x3/uL (4.8-10.8)
[2019-11-28 06:36] LABS: ALBUMIN 2.2 g/dL (3.4-5.0); ALKALINE PHOSPHATASE 73 U/L (30-120); ALT (SGPT) 15 U/L (10-68); BILIRUBIN - TOTAL 0.21 mg/dL (0.2-1.3); CALCIUM 7.9 mg/dL (8.5-10.1); CARBON DIOXIDE 19.3 mmol/L (21.0-32.0); CKMB 9.5 U/L (0.0-3.6); CREATININE - SERUM 4.6 mg/dL (0.6-1.3); LDH 214 U/L (81-234); MAGNESIUM - SERUM 1.6 mg/dL (1.8-2.4); PHOSPHOROUS 5.1 mg/dL (2.5-4.9); PROTEIN - SERUM 6.8 g/dL (6.4-8.2); UREA NITROGEN 64 mg/dL (7-18); eGFR NON AFRICAN AMERICAN 10 mL/min (90-120)
[2019-11-28 07:27] LABS: CREATINE KINASE 1753 UL (21-215); GLUCOSE 131 mg/dL (74-106); TROPONIN-I 5.558 ng/mL (0.000-0.060)
[2019-11-28 07:28] LABS: CALC OSMOLALITY 293 mosm/kg (275-300); SODIUM 137 mmol/L (136-145)
[2019-11-28 07:29] LABS: CHLORIDE - SERUM 104 mmol/L (98-107); POTASSIUM - SERUM 4.4 mmol/L (3.5-5.1)
[2019-11-28 09:00] VITALS: BP 123/45
--- NOTE | 2019-11-28 10:37 | NUR ---
AFTER SCANNING AND DRAWING UP LANTUS, PT REFUSED SHOT.
[2019-11-28 11:22] VITALS: BP 142/76
[2019-11-28 15:23] LABS: CKMB 6.8 U/L (0.0-3.6)
[2019-11-28 15:28] LABS: CREATINE KINASE 1720 UL (21-215); TROPONIN-I 4.519 ng/mL (0.000-0.060)
[2019-11-28 15:50] VITALS: Ht 160 cm; Wt 88.5 kg
[2019-11-28 20:27] VITALS: BP 140/42
[2019-11-28 20:41] LABS: CKMB 4.4 U/L (0.0-3.6); CREATINE KINASE 1382 UL (21-215)
[2019-11-29 00:37] VITALS: BP 126/60
[2019-11-29 04:39] VITALS: BP 149/66
--- NOTE | 2019-11-29 06:43 | NUR ---
I have reviewed this patient and I concur with the Shift Assessment completed by the Licensed Practical Nurse today this shift.
[2019-11-29 06:55] LABS: BASOPHILS 0.3 % (0-2); EOSINOPHILS 0.7 % (0-7); HEMATOCRIT 27.7 % (36.0-48.0); HEMOGLOBIN 8.5 g/dL (12-16); IMMATURE GRANULOCYTES 0.4 % (0-5); LYMPHOCYTES 9.1 % (15-50); MCH 27.6 pg (26.0-34.0); MCHC 30.7 g/dL (31.0-37.0); MCV 89.9 fL (80.0-100.0); MEAN PLATELET VOLUME 10.4 fL (7.4-10.4); MONOCYTES 7.5 % (2-11); PLATELET COUNT 223 10x3/uL (130-400); RBC 3.08 10x6/uL (4.00-5.40); RDW 16.5 % (11.5-14.5); WBC 11.2 10x3/uL (4.8-10.8)
[2019-11-29 07:18] LABS: CARBON DIOXIDE 15.5 mmol/L (21.0-32.0); CHLORIDE - SERUM 102 mmol/L (98-107); CREATININE - SERUM 4.8 mg/dL (0.6-1.3); MAGNESIUM - SERUM 1.5 mg/dL (1.8-2.4); PHOSPHOROUS 5.8 mg/dL (2.5-4.9); POTASSIUM - SERUM 4.3 mmol/L (3.5-5.1); SODIUM 135 mmol/L (136-145); UREA NITROGEN 69 mg/dL (7-18); eGFR NON AFRICAN AMERICAN 9 mL/min (90-120)
[2019-11-29 07:24] LABS: CALC OSMOLALITY 293 mosm/kg (275-300); CREATINE KINASE 867 UL (21-215); GLUCOSE 179 mg/dL (74-106); LDH 286 U/L (81-234)
[2019-11-29 07:25] LABS: CKMB 4.2 U/L (0.0-3.6)
--- NOTE | 2019-11-29 07:55 | NUR ---
PT ROLLED OVER ON IV TUBING AND PULLED OUT RIGHT WRIST 20G IV WITH CATH INTACT. INSERTED A RIGHT FA 22G IV.
[2019-11-29 08:00] VITALS: BP 143/80
[2019-11-29 11:00] VITALS: BP 135/99
--- NOTE | 2019-11-29 11:11 | NUR ---
PT STATES SHE GOES TO A WOUND CARE CLINIC FOR RIGHT FOOT. WOUND CARE NURSE IS OUT RIGHT NOW. SPOKE WTIH DR. JARRETT AND HE STATES TO PLACE A CONSULT FOR DR. WHITEHEAD. I VERBALIZED UNDERSTANDING.
[2019-11-29 15:00] VITALS: BP 128/71
--- NOTE | 2019-11-29 16:38 | NUR ---
I have reviewed this patient and I concur with the Shift Assessment completed by the Licensed Practical Nurse today this shift.
--- NOTE | 2019-11-29 19:26 | NUR ---
RECIEVED UP IN BED WITH EYES OPEN NA DTV ON. ALERT AND ORIENTED TO PERSON ONLY. O2 LAYING ON BED. PUT BACK ON HER. O2@ 2 LITERS PER N/C. IV TO RT FA WITH SODIUM BICARB AT 75CC/HR. F/C INTACT. PACEMAKER TO LT CHEST. DSG TO LT FOOT AND 1/2 LT FOOT AMPUTATED. PERIAREA IS TEO. TELEMETRY IN PLACE. DENIES ANY NEEDS AT THIS TIME.
[2019-11-29 21:00] VITALS: BP 141/52
[2019-11-30 00:45] VITALS: BP 127/49
[2019-11-30 04:24] VITALS: BP 136/49
[2019-11-30 06:31] LABS: BASOPHILS 0.2 % (0-2); EOSINOPHILS 1.8 % (0-7); HEMATOCRIT 28.8 % (36.0-48.0); HEMOGLOBIN 9.3 g/dL (12-16); IMMATURE GRANULOCYTES 0.4 % (0-5); LYMPHOCYTES 7.9 % (15-50); MCH 27.3 pg (26.0-34.0); MCHC 32.3 g/dL (31.0-37.0); MEAN PLATELET VOLUME 9.6 fL (7.4-10.4); NEUTROPHILS 82.7 % (40-80); RBC 3.41 10x6/uL (4.00-5.40); WBC 11.5 10x3/uL (4.8-10.8)
[2019-11-30 06:32] LABS: MCV 84.5 fL (80.0-100.0); PLATELET COUNT 305 10x3/uL (130-400)
[2019-11-30 07:28] LABS: ALKALINE PHOSPHATASE 85 U/L (30-120); BILIRUBIN - TOTAL 0.27 mg/dL (0.2-1.3); CALC OSMOLALITY 300 mosm/kg (275-300); CALCIUM 7.9 mg/dL (8.5-10.1); CHLORIDE - SERUM 104 mmol/L (98-107); GLUCOSE 148 mg/dL (74-106); MAGNESIUM - SERUM 1.4 mg/dL (1.8-2.4); PROTEIN - SERUM 5.9 g/dL (6.4-8.2); SODIUM 140 mmol/L (136-145); UREA NITROGEN 65 mg/dL (7-18)
[2019-11-30 07:33] LABS: ALT (SGPT) 19 U/L (10-68); CREATINE KINASE 310 UL (21-215); CREATININE - SERUM 3.3 mg/dL (0.6-1.3); PHOSPHOROUS 3.5 mg/dL (2.5-4.9); eGFR NON AFRICAN AMERICAN 14 mL/min (90-120)
[2019-11-30 07:34] LABS: CKMB 2.2 U/L (0.0-3.6)
[2019-11-30 08:45] VITALS: BP 180/63
--- NOTE | 2019-11-30 09:18 | NUR ---
PT ALERT AND ORIENTED TO SELF UPON ENTERING. ADMINISTERED MEDICATION, NO DIFFICULTIES. SUGAR 193, 30 UNITS INSULIN PEN PER SCHEDULE. RESTING COMFORTABLY. DENIES ANY NEEDS. BED IN LOWEST POSITION, BED RAILS X2, CALL LIGHT WITHIN REACH. WILL CONTINUE TO MONITOR.
[2019-11-30 12:07] VITALS: BP 162/56
--- NOTE | 2019-11-30 12:10 | NUR ---
I have reviewed this patient and I concur with the Shift Assessment completed by the Licensed Practical Nurse today this shift.
--- NOTE | 2019-11-30 12:41 | NUR ---
ADMINISTERED MEDICATION PER ELECTROLYTE REPLACEMENT PROTOCOL. HUNG IV ABX, TOLERATING WELL. ADMINISTERED 10 UNITS INSULIN PER SLIDING SCALE FOR 258 SUGAR. RESTING COMFORTABLY IN BED. DENIES ANY NEEDS. WILL CONTINUE TO MONITOR.
--- NOTE | 2019-11-30 16:43 | NUR ---
RESTING COMFORTABLY IN BED, STILL CONFUSED. NO INSULIN PER SLIDING SCALE FOR SUGAR OF 149. MAG OX DOSE TO FINISH ELECTROLYT PROTOCOL REPLACEMENT. DENIES ANY NEEDS. WILL CONTINUE TO MONITOR.
--- NOTE | 2019-11-30 19:28 | NUR ---
RECIEVED UP IN BED WITH EYES OPEN AND TV ON. ALERT AND ORIETNED TO PERSON ONLT. O2@ 2 LITERS PER N/C NOT IN PLACE. PUT BACK ON. HOWEVER SHE CONTINUES TO PULL OFF. PACEMAKER TO RT CHEST. TELEMETRY IN PLACE. DSG TO RT FOOT. PERIAREA TEO. DENIES ANY NEEDS AT THIS TIME.
[2019-11-30 20:30] VITALS: BP 159/63
[2019-12-01 04:41] VITALS: BP 148/68
[2019-12-01 07:19] VITALS: BP 186/58
--- NOTE | 2019-12-01 08:54 | EC ---
PATIENT:CATHIE YOUNG DATE OF SERVICE: 11/27/19 SEX: F MEDICAL RECORD: [id number] DATE OF : 40 LOCATION:D.M2 D.213 AGE OF PATIENT: 79 ADMISSION DATE: 11/27/19 REFERRING PHYSICIAN: INTERPRETING PHYSICIAN: JESUS MANUEL BELL MD ECHOCARDIOGRAM REPORT ECHO CHARGES 4 ECHO COMPLETE Date: 11/28/19 CLINICAL DIAGNOSIS: CMP ECHOCARDIOGRAPHIC MEASUREMENTS (adult normal given) AC root (d.<3.7cm) 2.7 cm LV Septum d (<1.2 cm> 1.1 cm Valve Excursion 1.4 cm LV Septum (systole) 1.4 cm Left Atria (s.<4.0cm> 5.2 cm LVPW d(<1.2cm) 0.9 cm RV (d.<2.3cm) 3.0 cm LVPW (sytole) 1.0 cm LV diastole(<5.6CM) 6.1 cm MV E-F(>70mm/sec) cm LV systole 5.2 cm LVOT Diameter 1.7 cm MV exc.(>10mm) cm Est.ejection fraction (50-75%) % DOPPLER: LVIT cm/sec A 67 cm/sec E 124 cm/sec LA cm/sec RVSP 42.2 mmHg LVOT 61 cm/sec AOP1/2T m/s Asc. Ao 107 cm/sec RVOT 58 cm/sec RA cm/sec PA 71 cm/sec AV Gradient Peak 4.6 mmHg AV Mean 2.8 mmHg AV Area 1.0 cm MV Gradient Peak 8.0 mmHg MV Mean 2.1 mmHg MV Area cm COMMENTS: Automotive Detailer: Yasmeen GRAVESZEENAT LAURA Electromechanical Technician: 3 Dr. Hunter TAPE# PACS Pericardial Effusion N DATE OF SERVICE: Adequate 2D, color-flow imaging, spectral Doppler, and M-Mode No LVH. LV internal dimensions are normal. Wall motion is mildly globally hypokinetic with reduced EF, estimated EF 40% to 45%. Aortic valve is sclerosed without evidence of stenosis by Doppler interrogation. Left atrium is dilated at 5.2 cm. Mitral valve shows no prolapse. Trace MR. Right-sided chambers are grossly normal. Mild TR. ECHOCARDIOGRAM REPORT [id number] CATHIE YOUNG TRANSINT:[id number] Voice Confirmation ID: [id number] DOCUMENT ID: [id number] JESUS MANUEL BELL MD at 0854 CC: [id number] DICTATION DATE: 11/28/19 1325 LAST IRONER: 11/28/19 1341 ADM IN [place] [id number] [place] [id number]
[2019-12-01 09:10] LABS: BASOPHILS 0.2 % (0-2); EOSINOPHILS 0.7 % (0-7); HEMATOCRIT 29.6 % (36.0-48.0); HEMOGLOBIN 9.4 g/dL (12-16); IMMATURE GRANULOCYTES 0.7 % (0-5); LYMPHOCYTES 10.2 % (15-50); MCH 27.2 pg (26.0-34.0); MCHC 31.8 g/dL (31.0-37.0); MCV 85.5 fL (80.0-100.0); MEAN PLATELET VOLUME 9.6 fL (7.4-10.4); MONOCYTES 8.4 % (2-11); NEUTROPHILS 79.8 % (40-80); PLATELET COUNT 352 10x3/uL (130-400); RBC 3.46 10x6/uL (4.00-5.40); RDW 15.9 % (11.5-14.5); WBC 11.9 10x3/uL (4.8-10.8)
--- NOTE | 2019-12-01 09:16 | NUR ---
BP 186/53. STATED THIS TO LEONIE SANZ AND ASKED FOR A PRN BP MED AND SHE STATES SHE WILL LOOK AT IT. I VERBALIZED UNDERSTANDING.
[2019-12-01 09:46] LABS: CALCIUM 7.9 mg/dL (8.5-10.1); CHLORIDE - SERUM 101 mmol/L (98-107); GLUCOSE 131 mg/dL (74-106); MAGNESIUM - SERUM 1.1 mg/dL (1.8-2.4); PHOSPHOROUS 2.7 mg/dL (2.5-4.9); SODIUM 137 mmol/L (136-145)
[2019-12-01 09:47] LABS: CALC OSMOLALITY 286 mosm/kg (275-300); CARBON DIOXIDE 27.3 mmol/L (21.0-32.0); CREATINE KINASE 229 UL (21-215); CREATININE - SERUM 1.9 mg/dL (0.6-1.3); UREA NITROGEN 43 mg/dL (7-18); eGFR NON AFRICAN AMERICAN 27 mL/min (90-120)
[2019-12-01 09:49] LABS: CKMB 1.6 U/L (0.0-3.6); POTASSIUM - SERUM 2.5 mmol/L (3.5-5.1)
--- NOTE | 2019-12-01 10:43 | NUR ---
Nutrition Follow-up: Diet: Diabetic (previously Renal ADA) PO intake: 0-25% Last BM: 12/01/19 x 3. 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 Will add Glucerna TID with meals. RD following.
[2019-12-01 11:40] VITALS: BP 158/60
--- NOTE | 2019-12-01 17:53 | MORECARE ---
CASE MANAGEMENT DISCHARGE SUMMARY PATIENT: CATHIE YOUNG UNIT: [id number] ADM DATE: 11/27/19 AGE: 79 : 40 SEX: F ROOM/BED: D.2139 AUTHOR: MARISSA LOCKETT PHYSICIAN: REFERRING PHYSICIAN: NANCY JARRETT DO DATE OF SERVICE: 12/01/19 Discharge Plan Patient Name: [facility]IE YOUNG [facility] [facility] 1940 Planned Disposition: Senior Living Facility Anticipated Discharge Date: Discharge Date: Expected LOS: Initial Reviewer: [email or web address] Initial Review Date: 11/27/2019 Generated: 12/01/19 6:52 pm Patient Name: CATHIE YOUNG Page [phone] at 1753 All edits/amendments must be made on the electronic document DICTATION DATE: 12/01/191751 JUNIOR ANALYST: NATHANIEL 12/01/191751 RPT#: [id number] DC DATE: STATUS: ADM IN [facility] [address] [place] [address] END OF REPORT
--- NOTE | 2019-12-01 19:00 | NUR ---
EVENING ROUNDS COMPLETE. PT LAYING IN BED, ORIENTED TO SELF ONLY. PT DENIES ANY NEEDS, C/O PAIN TO RIGHT FOREARM AT PIV SITE. SITE IS NOTABLY RED AND PUFFY AND PAINFUL TO PT WHEN TOUCHED. FLUIDS STOPPED AT THIS TIME, PIV REMOVED. PT IS REFUSING NEW PIV AT THIS TIME. WILL TRY AGAIN. CL IN REACH, BED IN LOWEST POSITION.
[2019-12-01 19:32] VITALS: BP 113/37
[2019-12-02 00:30] VITALS: BP 156/65
[2019-12-02 04:00] VITALS: BP 148/52
[2019-12-02 07:27] VITALS: BP 153/64
[2019-12-02 07:51] LABS: ANION GAP 14.1 mmol/L (8-16); CARBON DIOXIDE 25.1 mmol/L (21.0-32.0); MAGNESIUM - SERUM 1.5 mg/dL (1.8-2.4); PHOSPHOROUS 2.6 mg/dL (2.5-4.9); POTASSIUM - SERUM 3.2 mmol/L (3.5-5.1)
[2019-12-02 07:52] LABS: CREATININE - SERUM 1.2 mg/dL (0.6-1.3)
--- NOTE | 2019-12-02 08:39 | NUR ---
DR MCCLELLAN ORDERED AN MRI RT FOOT WITHOUT CONTRAST. PATIENT HAS A PACEMAKER. DR MCCLELLAN WAS NOTIFIED AND WANTED IT CHANGED TO A CT INSTEAD OF DOING MRI.
[2019-12-02 11:04] VITALS: BP 145/55
--- NOTE | 2019-12-02 15:32 | NUR ---
ATTEMPTED TO GET IV IN PT. PT WAS PHYSICALLY AND VERBALLY ABUSIVE. WOULD VERBALLY CONSENT TO IV PLACEMENT AND WHEN WE ATTEMPTED TO STICK HER SHE WOULD BITE, SCRATCH, AND HIT NURSES. IV ATTEMPTED X2 WITH NO SUCCESS. DRESSING CHANGED TO RIGHT FOOT PER ORDERS, CDI. BM X1. COMPLETE BED CHANGE, PT CLEANED AND CALMOSEPTINE APPLIED TO BOTTOM AND AVA AREA. HAIR WASHED PER REQUEST. DIET LEMON-SELAWIK RECIEVED. CALL LIGHT WITHIN REACH. WILL CONTINUE TO MONITOR.
--- NOTE | 2019-12-02 15:41 | NUR ---
ORDERS RECIEVED FROM DR. MCCLELLAN FOR CALEB
[2019-12-02 15:43] VITALS: BP 126/41
--- NOTE | 2019-12-02 16:48 | NUR ---
I have reviewed this patient and I concur with the Shift Assessment completed by the Licensed Practical Nurse today this shift.
[2019-12-03 01:58] VITALS: BP 169/77
[2019-12-03 06:18] LABS: BASOPHILS 0.3 % (0-2); EOSINOPHILS 3.3 % (0-7); HEMATOCRIT 34.3 % (36.0-48.0); HEMOGLOBIN 10.6 g/dL (12-16); LYMPHOCYTES 15.3 % (15-50); MCH 27.2 pg (26.0-34.0); MCHC 30.9 g/dL (31.0-37.0); MEAN PLATELET VOLUME 9.7 fL (7.4-10.4); MONOCYTES 6.2 % (2-11); NEUTROPHILS 73.9 % (40-80); RBC 3.89 10x6/uL (4.00-5.40); WBC 12.2 10x3/uL (4.8-10.8)
[2019-12-03 06:19] LABS: MCV 88.2 fL (80.0-100.0); PLATELET COUNT 447 10x3/uL (130-400)
[2019-12-03 06:51] LABS: ANION GAP 15.1 mmol/L (8-16); CALCIUM 8.4 mg/dL (8.5-10.1); CARBON DIOXIDE 28.2 mmol/L (21.0-32.0); CREATININE - SERUM 1.1 mg/dL (0.6-1.3); POTASSIUM - SERUM 3.3 mmol/L (3.5-5.1)
--- NOTE | 2019-12-03 07:30 | NUR ---
PT LAYING SUPINE, RR EVEN AND UNLABORED ON RA. DENIES NEEDS OR PAIN AT THIS TIME. CONFUSED TO TIME, PLACE, AND SITUATION. CALL LIGHT WITHIN REACH. BED IN LOWEST POSITION. WILL CONTINUE TO MONITOR.
--- NOTE | 2019-12-03 14:32 | NUR ---
I have reviewed this patient and I concur with the Shift Assessment completed by the Licensed Practical Nurse today this shift.
[2019-12-03 16:43] VITALS: BP 119/87
--- NOTE | 2019-12-03 18:36 | NUR ---
DRESSING CHANGED,CDI. DR. WHITEHEAD AT BEDSIDE.
[2019-12-03 20:00] VITALS: BP 137/63
[2019-12-04] VITALS: BP 139/62
[2019-12-04 04:00] VITALS: BP 135/42
--- NOTE | 2019-12-04 07:57 | MORECARE ---
CASE MANAGEMENT DISCHARGE SUMMARY PATIENT: CATHIE YOUNG UNIT: [id number] ADM DATE: 11/27/19 AGE: 79 : 40 SEX: F ROOM/BED: D.7118 AUTHOR: MARISSA LOCKETT PHYSICIAN: REFERRING PHYSICIAN: NANCY JARRETT DO DATE OF SERVICE: 12/04/19 Discharge Plan Patient Name: [facility] [facility] 1940 Planned Disposition: Longterm Facility Anticipated Discharge Date: Discharge Date: Expected LOS: Initial Reviewer: [email or web address] Initial Review Date: 11/27/2019 Generated: 12/04/19 8:57 am External Providers External Provider: [facility] Next Contact Date: Service Request Date: Service Type: Resolution: Reviewer: Comments: Last DP export: 12/01/19 4:53 p Patient Name: CATHIE YOUNG Page [phone] at 0757 All edits/amendments must be made on the electronic document DICTATION DATE: 12/04/19756 SUBSTATION INSPECTOR: NATHANIEL 12/04/19 075 RPT#: [id number] DC DATE: STATUS: ADM IN [facility] [address] [place] [address] END OF REPORT
[2019-12-04 09:57] VITALS: BP 140/54
--- NOTE | 2019-12-04 11:55 | MORECARE ---
CASE MANAGEMENT DISCHARGE SUMMARY PATIENT: CATHIE YOUNG UNIT: [id number] ADM DATE: 11/27/19 AGE: 79 : 40 SEX: F ROOM/BED: D.2295 AUTHOR: MARISSA LOCKETT PHYSICIAN: REFERRING PHYSICIAN: NANCY JARRETT DO DATE OF SERVICE: 12/04/19 Discharge Plan Patient Name: CATHIE YOUNG [facility] [facility] 1940 Planned Disposition: Snf Facility Anticipated Discharge Date: Discharge Date: Expected LOS: Initial Reviewer: [email or web address] Initial Review Date: 11/27/2019 Generated: 12/04/19 12:54 pm Comments DCP- Discharge Planning Updated by [email or web address]: Fara Mayes on 12/04/19 10:[address] CM called [facility] to set up transportation for pending DC and Spoke with Derek GLASGOW. Derek states she does not feel comfortable sending patient home today. States the patient has been septic, and will not take the patient back on the day she has a PICC line placed. Fara Mayes Last DP export: 12/04/19 6:57 a Patient Name: CATHIE YOUNG Page [phone] at 1155 All edits/amendments must be made on the electronic document DICTATION DATE: 12/04/19 1154 PROTOTYPE MACHINE OPERATOR: NATHANIEL 12/04/19 1154 RPT#: [id number] DC DATE: STATUS: ADM IN [facility] [address] [place] [address] END OF REPORT
[2019-12-04] MEDS ORDERED: VANCOMYCIN 1 GM/1 G1 IV (13:31)
--- NOTE | 2019-12-04 14:35 | MORECARE ---
CASE MANAGEMENT DISCHARGE SUMMARY PATIENT: CATHIE YOUNG UNIT: [id number] ADM DATE: 11/27/19 AGE: 79 : 40 SEX: F ROOM/BED: D.7000 AUTHOR: MARISSA LOCKETT PHYSICIAN: REFERRING PHYSICIAN: NANCY JARRETT DO DATE OF SERVICE: 12/04/19 Discharge Plan Patient Name: CATHIE YOUNG Facility: [facility]:[place] : 1940 Planned Disposition: Senior Living Facility Anticipated Discharge Date: Discharge Date: Expected LOS: Initial Reviewer: [email or web address] Initial Review Date: 11/27/2019 Generated: 12/04/19 3:35 pm Comments DCP- Discharge Planning Updated by [email or web address]: Fara Mayes on 12/04/19 1:[address] Patient Name: CATHIE YOUNG Encounter No: [id number] : 1940 Primary Insurance: MEDICARE A & B Anticipated DC Date: Planned Disposition: Senior Living Facility External Planned Provider: : DCP follow-up note: WILLIAM spoke with vascular access nurse who states a midline can last up to 28 days. WILLIAM called Derek at [facility] at [phone] to update line access. Derek suggests that the patient should stay one more night to recover from the procedure. WLILIAM provided education about midline access. Derek states she does not understand why the patient can not stay one more night. WILLIAM provided update to patient's medical stability. Derek states she does not have a van available because it is out of commission. WILLIAM questioned Derek how she would like the patient to be transported. The patient will be transported via EMS per Derek DON request. Nursing can call report to [phone] [place] [address] nursing staff. The patient will be in [facility] bed. WILLIAM attempted to call Carlito (son) at [phone] but the phone has been disconnected. DC IMM was mailed to [address] [place] [address] with return receipt requested. No changes to plan. Case management will follow and assist as needed. Fara Mayes DCP- Discharge Planning Updated by [email or web address]: Fara Mayes on 12/04/19 10:[address] CM called [facility] to set up transportation for pending DC and Spoke with Derek GLASGOW. Derek states she does not feel comfortable sending patient home today. States the patient has been septic, and will not take the patient back on the day she has a PICC line placed. Fara Mayes Last DP export: 12/04/19 10:55 a Patient Name: CATHIE YOUNG Page [phone] at 1435 All edits/amendments must be made on the electronic document DICTATION DATE: 12/04/19 1435 MASTER TECHNICIAN: NATHANIEL 12/04/19 1435 RPT#: [id number] DC DATE: STATUS: ADM IN [facility] [address] [place] [address] END OF REPORT
[2019-12-04 15:06] VITALS: BP 113/41
--- NOTE | 2019-12-05 18:46 | MORECARE ---
CASE MANAGEMENT DISCHARGE SUMMARY PATIENT: CATHIE YOUNG UNIT: [id number] ADM DATE: 11/27/19 AGE: 79 : 40 SEX: F ROOM/BED: D.5056 AUTHOR: MARISSA LOCKETT PHYSICIAN: REFERRING PHYSICIAN: NANCY JARRETT DO DATE OF SERVICE: 12/05/19 Discharge Plan Patient Name: CATHIE YOUNG Facility: [facility]:[place] : 1940 Planned Disposition: Alf Facility Anticipated Discharge Date: Discharge Date: 12/04/2019 Expected LOS: Initial Reviewer: [email or web address] Initial Review Date: 11/27/2019 Generated: 12/05/19 7:46 pm Comments DCP- Discharge Planning Updated by [email or web address]: Fara Mayes on 12/04/19 1:[address] Patient Name: CATHIE YOUNG Encounter No: [id number] : 1940 Primary Insurance: MEDICARE A & B Anticipated DC Date: Planned Disposition: Alf Facility External Planned Provider: : DCP follow-up note: WILLIAM spoke with vascular access nurse who states a midline can last up to 28 days. WILLIAM called Derek at [facility] at [phone] to update line access. Derek suggests that the patient should stay one more night to recover from the procedure. WILLIAM provided education about midline access. Derek states she does not understand why the patient can not stay one more night. WILLIAM provided update to patient's medical stability. Derek states she does not have a van available because it is out of commission. WILLIAM questioned Derek how she would like the patient to be transported. The patient will be transported via EMS per Derek DON request. Nursing can call report to [phone] [place] [address] nursing staff. The patient will be in [facility] bed. CM attempted to call Carlito (son) at [phone] but the phone has been disconnected. DC IMM was mailed to [facility] with return receipt requested. No changes to plan. Case management will follow and assist as needed. Fara Mayes DCP- Discharge Planning Updated by [email or web address]: Fara Mayes on 12/04/19 10:[address] CM called [facility] to set up transportation for pending DC and Spoke with Derek GLASGOW. Derek states she does not feel comfortable sending patient home today. States the patient has been septic, and will not take the patient back on the day she has a PICC line placed. Fara Mayes Last DP export: 12/04/19 1:36 p Patient Name: CATHIE YOUNG Page [id number] at 1846 All edits/amendments must be made on the electronic document DICTATION DATE: 12/05/191845 SALES ORDER PROCESSOR: NATHANIEL 12/05/191845 RPT#: [id number] DC DATE:12/04/19 STATUS: DIS IN [facility] [address] [place] [address] END OF REPORT
== END 2019-12-04 16:45 | DRG 871 ==
LOC: D.ER 11:00 → D.M2 13:15
PROVIDERS: Emergency Medicine; Internal Medicine Nephrology; ADMIT Family Medicine; ATTEND Family Medicine
DX: A41.9 Sepsis, unspecified organism (principal); I21.A1 Myocardial infarction type 2; N17.0 Acute kidney failure with tubular necrosis; N39.0 Urinary tract infection, site not specified; M62.82 Rhabdomyolysis; L03.115 Cellulitis of right lower limb; E86.0 Dehydration; F03.90 Unspecified dementia, unspecified severity, without behavioral disturbance, psychotic disturbance, mood disturbance, and anxiety; E11.40 Type 2 diabetes mellitus with diabetic neuropathy, unspecified; E11.621 Type 2 diabetes mellitus with foot ulcer; L97.519 Non-pressure chronic ulcer of other part of right foot with unspecified severity; E11.22 Type 2 diabetes mellitus with diabetic chronic kidney disease; I12.9 Hypertensive chronic kidney disease with stage 1 through stage 4 chronic kidney disease, or unspecified chronic kidney disease; N18.9 Chronic kidney disease, unspecified; E87.5 Hyperkalemia; D63.1 Anemia in chronic kidney disease; E11.65 Type 2 diabetes mellitus with hyperglycemia; Z86.73 Personal history of transient ischemic attack (TIA), and cerebral infarction without residual deficits